=== PATIENT | male | born 1990 | race American Indian/Alaskan Native ===

== ENCOUNTER 2016-12-14 12:44 | Emergency (ER) | payer MEDICARE ==
[2016-12-14 12:55] VITALS: BP 116/73
[2016-12-14] MEDS ORDERED: TORADOL IM ONE (15:27)
== END 2016-12-14 16:07 | disposition home or self-care (01) ==
LOC: ED 12:44
DX: M54.5 Low back pain (principal); G89.29 Other chronic pain
CPT/HCPCS: 96372; 99282; J1885

== ENCOUNTER 2017-05-28 18:58 | Emergency (ER) | payer MEDICARE ==
[2017-05-28 20:04] LABS: Urine Drugs of Abuse Note Disclamer
--- NOTE | 2017-05-28 20:08 | Emergency Department Report ---
ED Syncope HPI - General Chief Complaint: Syncope Stated Complaint: SYNCOPE EPISODE Time Seen by Provider: 05/28/17 19:59 Source: patient, family - History of Present Illness Initial Comments: Patient is 26-year-old male presents by EMS after one episode of seizure-like activity [place] all [place] a sudden he lost his consciousness and he started jerking. Friend stated that discontinued for few seconds in patient with back to normal patient did not have any bladder incontinence patient now is back to normal. This is a first episode. No family history of seizure. Timing/Prior Episodes: no prior history, single episode today Precipitating Factors: Positive: none Context: standing Loss of Consciousness: brief (seconds) Current Symptoms: back to normal. denies: blurred vision, chest pain, diaphoresis, dizziness, headache, injury, lightheadedness, loss of bladder control, loss of bowel control, motionless, nausea, pale, shallow/rapid breathing, weak/absent pulse, weakness - Related Data Allergies/Adverse Reactions: Allergies No Known Allergies Allergy (Verified 05/28/17 19:45) Home Medications: Ambulatory Orders No Known Home Medications [No Reported Home Medications] 05/28/17 ED Review of Systems ROS: Stated complaint: SYNCOPE EPISODE Other details as noted in HPI Comment: All other systems reviewed and negative Constitutional: denies: chills, fever Respiratory: denies: cough, orthopnea, shortness of breath, SOB with exertion Cardiovascular: denies: chest pain, palpitations, dyspnea on exertion, edema, syncope, paroxysmal nocturnal dyspnea Gastrointestinal: denies: abdominal pain, nausea, vomiting, diarrhea, constipation, hematemesis Musculoskeletal: denies: back pain, joint swelling Skin: denies: rash, change in color, change in hair/nails Neurological: denies: headache, weakness, numbness, paresthesias ED Past Medical Hx - Past Medical History Previous Medical History?: Yes Hx Hypertension: Yes Additional medical history: back pain - Surgical History Past Surgical History?: No - Social History Smoking Status: Never Smoker Substance Use Type: None - Medications Home Medications: Home Medications Medication Instructions Recorded Confirmed Last Taken Type No Known Home Medications [No 05/28/17 05/28/17 Unknown History Reported Home Medications] ED Physical Exam - General Limitations: No Limitations General appearance: alert, in no apparent distress - Head Head exam: Present: atraumatic, normocephalic - Eye Eye exam: Present: normal appearance, PERRL, EOMI Pupils: Present: normal accommodation - ENT ENT exam: Present: normal exam, normal orophraynx, mucous membranes moist, TM's normal bilaterally - Neck Neck exam: Present: normal inspection, full ROM. Absent: meningismus, lymphadenopathy, thyromegaly - Respiratory Respiratory exam: Present: normal lung sounds bilaterally. Absent: respiratory distress, wheezes, rales, rhonchi, stridor, decreased breath sounds, prolonged expiratory - Cardiovascular Cardiovascular Exam: Present: regular rate, normal rhythm, normal heart sounds - GI/Abdominal GI/Abdominal exam: Present: soft, normal bowel sounds. Absent: distended, tenderness, guarding, rebound, rigid, mass, bruit, pulsatile mass, hernia - Extremities Exam Extremities exam: Present: normal inspection, full ROM, normal capillary refill - Back Exam Back exam: Present: normal inspection, full ROM. Absent: tenderness, CVA tenderness (R), CVA tenderness (L), paraspinal tenderness, vertebral tenderness - Neurological Exam Neurological exam: Present: alert, oriented X3, CN II-XII intact, normal gait - Skin Skin exam: Present: warm, intact, normal color ED Course Vital Signs 05/28/17 19:45 Temperature 98.1 F Pulse Rate 67 Respiratory 18 Rate Blood Pressure 147/91 O2 Sat by Pulse 99 Oximetry - Reevaluation(s) Reevaluation #1: 05/28/17 22:15 Patient remained asymptomatic in the ER nor any evidence of seizure activity. ED Medical Decision Making - Lab Data Result diagrams: 05/28/17 20:42 05/28/17 20:42 - EKG Data -: EKG Interpreted by Me EKG shows normal: sinus rhythm - EKG Data Interpretation: no acute changes - Radiology Data Radiology results: report reviewed CT brain unremarkable - Medical Decision Making Patient stated that he is feeling better. And for him this is a possibility of seizure versus just syncope he need to follow up with an neurologist in the next 2-3 days. Critical care attestation.: If time is entered above; I have spent that time in minutes in the direct care of this critically ill patient, excluding procedure time. ED Disposition Clinical Impression: Syncope and collapse Disposition: DC- TO HOME OR SELFCARE Is pt being admited?: No Condition: Stable Instructions: Syncope (ED) Referrals: PRIMARY CARE,MD [Primary Care Provider] - 3-5 Days
[2017-05-28 20:13] LABS: Bilirubin,Urine NEG (Negative); Blood,Urine NEG (Negative); Ketones,Urine NEG (Negative); Leukocyte Esterase,Urine NEG (Negative); Nitrite,Urine NEG (Negative); Protein,Urine <15 mg/dL mg/dL (Negative); RBC,Urine < 1.0 /HPF (0.0-6.0); Urobilinogen,Urine < 2.0 mg/dL (<2.0)
[2017-05-28 21:00] LABS: Basophils % (Auto) 0.7 % (0.0-1.8); Eosinophils % (Auto) 4.5 % (0.0-4.3); Hematocrit 42.2 % (35.5-45.6); Hemoglobin 14.3 gm/dl (11.8-15.2); Mean Corpuscular HGB Conc 34 % (32-34); Mean Corpuscular Hemoglobin 29 pg (28-32); Mean Corpuscular Volume 87 fl (84-94); Platelet Count 160 K/mm3 (140-440); Red Blood Count 4.88 M/mm3 (3.65-5.03); Red Cell Distribution Width 13.2 % (13.2-15.2); White Blood Count 5.6 K/mm3 (4.5-11.0)
[2017-05-28 21:22] LABS: Alanine Aminotransferase 10 units/L (7-56); Albumin 4.7 g/dL (3.9-5); Albumin/Globulin Ratio 1.9 %; Alkaline Phosphatase 45 units/L (35-129); Anion Gap 15 mmol/L; BUN/Creatinine Ratio 14; Blood Urea Nitrogen 11 mg/dL (9-20); Calcium 9.3 mg/dL (8.4-10.2); Carbon Dioxide 28 mmol/L (22-30); Chloride 102.7 mmol/L (98-107); Glucose 98 mg/dL (75-100); Potassium 4.7 mmol/L (3.6-5.0); Sodium 141 mmol/L (137-145); Total Protein 7.2 g/dL (6.3-8.2)
--- NOTE | 2017-05-28 21:42 | Cat Scan Report ---
FINAL REPORT PROCEDURE: CT HEAD/BRAIN WO CON TECHNIQUE: Computerized tomography of the head was performed without contrast material. HISTORY: AMS COMPARISON: No prior studies are available for comparison. FINDINGS: Skull and scalp: Normal. Paranasal sinuses: Normal. Ventricles and subarachnoid spaces: Normal. Cerebrum: No evidence of hemorrhage, acute infarction or mass . Cerebellum and brainstem: No evidence of hemorrhage, acute infarction or mass. Vasculature: Normal. Comments: None. IMPRESSION: Normal Examination
[2017-05-28 22:37] VITALS: BP 126/76
== END 2017-05-28 22:40 | disposition home or self-care (01) ==
LOC: ED 18:58
DX: R55 Syncope and collapse (principal); R56.9 Unspecified convulsions; I10 Essential (primary) hypertension
CPT/HCPCS: 36415; 70450; 80053; 80307; 81001; 85025; 93005; 93010; 99284; G0480; 80320

== ENCOUNTER 2018-01-31 13:54 | Emergency (ER) | payer MEDICARE ==
[2018-01-31 14:25] VITALS: BP 141/63
--- NOTE | 2018-01-31 15:25 | XRay Report ---
RIGHT ANKLE, 3 views: History: right ankle pain. Bone mineralization is normal. No acute osseous abnormality or joint pathology is identified. The soft tissues are unremarkable. IMPRESSION: Normal study.
[2018-01-31] MEDS ORDERED: MOTRIN PO ONE (16:43)
--- NOTE | 2018-01-31 16:46 | Emergency Department Report ---
ED Lower Extremity HPI - General Chief Complaint: Extremity Injury, Lower Stated Complaint: ANKLE HURTS Time Seen by Provider: 01/31/18 16:40 Source: patient Mode of arrival: Ambulatory Limitations: No Limitations - History of Present Illness Initial Comments: 27-year-old male past medical history attention presents with complaint of one week of right ankle pain. Patient denies any direct trauma to right ankle. Is ambulatory without assistance. States that he has been swimming lately may have strained his ankle while swimming. Denies any fevers chills or any other injuries. No calf swelling or calf tenderness. Patient is ambulatory without assistance but states that when he steps on his right ankle he feels pain medially. Complaint: ankle injury Onset/Timin -: week(s) Injury: Ankle: Right Type of Injury: hyperextension Place: street/outdoors Severity: moderate Severity scale (0 -10): 5 Worsens With: movement, palpation - Related Data Previous Rx's Medication Instructions Recorded Last Taken Type Ibuprofen [Motrin] 800 mg PO Q8HR PRN #20 tablet 01/31/18 Unknown Rx Allergies Allergy/AdvReac Type Severity Reaction Status Date / Time No Known Allergies Allergy Verified 05/28/17 19:45 ED Review of Systems ROS: Stated complaint: ANKLE HURTS Other details as noted in HPI Constitutional: denies: chills, fever Eyes: denies: eye pain, eye discharge, vision change ENT: denies: ear pain, throat pain Respiratory: denies: cough, shortness of breath, wheezing Cardiovascular: denies: chest pain, palpitations Endocrine: no symptoms reported Gastrointestinal: denies: abdominal pain, nausea, diarrhea Genitourinary: denies: urgency, dysuria Musculoskeletal: as per HPI, arthralgia (1 week rigth ankle discomfort). denies : back pain, joint swelling Skin: denies: rash, lesions Neurological: denies: headache, weakness, paresthesias Psychiatric: denies: anxiety, depression Hematological/Lymphatic: denies: easy bleeding, easy bruising ED Past Medical Hx - Past Medical History Hx Hypertension: Yes Additional medical history: back pain - Social History Smoking Status: Never Smoker Substance Use Type: None - Medications Home Medications: Home Medications Medication Instructions Recorded Confirmed Last Taken Type Ibuprofen [Motrin] 800 mg PO Q8HR PRN #20 tablet 01/31/18 Unknown Rx ED Physical Exam - General Limitations: No Limitations General appearance: alert, in no apparent distress - Head Head exam: Present: atraumatic, normocephalic - Eye Eye exam: Present: normal appearance - ENT ENT exam: Present: mucous membranes moist - Neck Neck exam: Present: normal inspection - Respiratory Respiratory exam: Present: normal lung sounds bilaterally. Absent: respiratory distress - Cardiovascular Cardiovascular Exam: Present: regular rate, normal rhythm. Absent: systolic murmur, diastolic murmur, rubs, gallop - GI/Abdominal GI/Abdominal exam: Present: soft, normal bowel sounds - Rectal Rectal exam: Present: deferred - Extremities Exam Extremities exam: Present: normal inspection - Expanded Lower Extremity Exam Right Upper Leg exam: Present: normal inspection, full ROM Knee exam: Present: normal inspection, full ROM Lower Leg exam: Present: normal inspection, full ROM Ankle exam: Present: full ROM (ankle plantar flexion dorsiflexion clinically intact. Distal pulses including dorsalis pedis and posterior tibial pulses strong to palpation. No signs of cellulitis or infection overlying ankle joint or foot.) Foot/Toe exam: Present: normal inspection, full ROM (inversion eversion dorsi and plantarflexion intact) Neuro vascular tendon exam: Present: no vascular compromise Gait: Positive: antalgic 1 - Slight pain on palpation - Back Exam Back exam: Present: normal inspection - Neurological Exam Neurological exam: Present: alert, oriented X3, CN II-XII intact, normal gait - Expanded Neurological Exam Expanded Patient oriented to: Present: person, place, time Sensory exam: Upper Extremity Light Touch: Normal, Lower Extremity Light Touch: Normal Motor strength exam: RUE: 5, LUE: 5, RLE: 5, LLE: 5 Best Eye Response (Jossy): (4) open spontaneously Best Motor Response (Jossy): (6) obeys commands Best Verbal Response (Jossy): (5) oriented [place] Total: 15 - Psychiatric Psychiatric exam: Present: normal affect, normal mood - Skin Skin exam: Present: warm, dry, intact, normal color. Absent: rash ED Course Vital Signs 07/05/18 14:22 Temperature 98.1 F Pulse Rate 61 Respiratory 16 Rate Blood Pressure 141/63 O2 Sat by Pulse 97 Oximetry ED Lower Extremity MDM - Medical Decision Making A/P: Right ankle sprain 1-pt can take several steps without significant difficulty 2-Solitario wrap, RICE therapy, Motrin 800. 3-no clinical signs of infection or DVT on exam. Distal pulses and range of motion clinically intact. 4-follow-up with orthopedics and primary care Critical care attestation.: If time is entered above; I have spent that time in minutes in the direct care of this critically ill patient, excluding procedure time. ED Disposition Clinical Impression: Right ankle pain Qualifiers: Chronicity: acute Qualified Code(s): M25.571 - Pain in right ankle and joints of right foot Disposition: - TO HOME OR SELFCARE Is pt being admited?: No Does the pt Need Aspirin: No Condition: Stable Instructions: RICE Therapy (ED), Arthralgia (ED), Ankle Sprain (ED) Prescriptions: Ibuprofen [Motrin] 800 mg PO Q8HR PRN #20 tablet PRN Reason: Pain , Severe (7-10) Referrals: BRANDON ORTIZ MD [Staff Physician] - 3-5 Days [facility] [Provider Group] - 3-5 Days Forms: Work/School Release Form(ED) Time of Disposition: 16:46
== END 2018-01-31 17:01 | disposition home or self-care (01) ==
LOC: ED 13:54
DX: M25.571 Pain in right ankle and joints of right foot (principal); I10 Essential (primary) hypertension; X58.XXXA Exposure to other specified factors, initial encounter; Y93.11 Activity, swimming; Y92.89 Other specified places as the place of occurrence of the external cause; Y99.8 Other external cause status
CPT/HCPCS: 99283

== ENCOUNTER 2018-05-16 22:46 | Emergency (ER) | payer MEDICARE ==
[2018-05-17 00:36] LABS: Basophils % (Auto) 0.5 % (0.0-1.8); Eosinophils # (Auto) 0.2 K/mm3 (0.0-0.4); Eosinophils % (Auto) 3.8 % (0.0-4.3); Hematocrit 41.9 % (35.5-45.6); Hemoglobin 13.9 gm/dl (11.8-15.2); Lymphocytes # (Auto) 2.7 K/mm3 (1.2-5.4); Lymphocytes % (Auto) 41.2 % (13.4-35.0); Mean Corpuscular HGB Conc 33 % (32-34); Mean Corpuscular Hemoglobin 29 pg (28-32); Mean Corpuscular Volume 88 fl (84-94); Monocytes # (Auto) 0.5 K/mm3 (0.0-0.8); Monocytes % (Auto) 8.3 % (0.0-7.3); Platelet Count 162 K/mm3 (140-440); Red Blood Count 4.75 M/mm3 (3.65-5.03); Red Cell Distribution Width 13.1 % (13.2-15.2)
[2018-05-17 01:14] LABS: Bilirubin,Urine NEG (Negative); Blood,Urine NEG (Negative); Color,Urine Yellow (Yellow); Mucus,Urine FEW /HPF; Protein,Urine <15 mg/dL mg/dL (Negative)
[2018-05-17 01:15] LABS: BUN/Creatinine Ratio 21; Blood Urea Nitrogen 15 mg/dL (9-20); Calcium 9.5 mg/dL (8.4-10.2); Hemolysis Index 12
[2018-05-17] MEDS ORDERED: SUBLIMAZE IV ONE (01:24)
[2018-05-17] MEDS ORDERED: ZOFRAN IV ONE (01:24)
[2018-05-17] MEDS ORDERED: TORADOL IV ONE (01:24)
[2018-05-17] MEDS ORDERED: NACL 0.9% 1000 ML 1,000 ML IV ONE (01:24)
--- NOTE | 2018-05-17 01:29 | Emergency Department Report ---
HPI - General Chief Complaint: Abdominal Pain Time Seen by Provider: 05/17/18 01:[address] - [facility] HPI: Room 3 The patient is a 27-year-old male presenting with chief complaint of right flank pain. The patient states for the past 5 days he right flank pain. The patient states the pain was initially intermittent but has now today become constant. The patient admits to nausea and vomiting. Patient denies dysuria, hematuria or fever. Patient denies previous episodes of the same. The patient gives his pain a score of 10/10 Location: Right flank Duration: 5 days Quality: Pain Severity: 10/10 Modifying factors: [see above] Context: [see above] Mode of transportation: [not driving] ED Past Medical Hx - Past Medical History Hx Hypertension: Yes Additional medical history: back pain - Surgical History Past Surgical History?: No - Family History Family history: no significant - Social History Smoking Status: Never Smoker Substance Use Type: None (denies illicit drug use) - Medications Home Medications: Home Medications Medication Instructions Recorded Confirmed Last Taken Type Ibuprofen [Motrin] 800 mg PO Q8HR PRN #20 tablet 01/31/18 Unknown Rx HYDROcodone/APAP 5-325 [[place] 1 - 2 each PO Q6HR PRN #14 tablet 05/17/18 Unknown Rx 5/325] Ibuprofen [Motrin 800 MG tab] 800 mg PO Q8HR PRN #20 tablet 05/17/18 Unknown Rx Promethazine [Phenergan TAB] 25 mg PO Q6HR PRN #20 tab 05/17/18 Unknown Rx levoFLOXacin [Levaquin TAB] 500 mg PO QDAY #7 tablet 05/17/18 Unknown Rx ED Review of Systems ROS: Stated complaint: RT FLANK PAIN Other details as noted in HPI Constitutional: denies: fever Eyes: denies: eye pain ENT: denies: throat pain Respiratory: no symptoms reported Cardiovascular: denies: chest pain Endocrine: no symptoms reported Gastrointestinal: abdominal pain (right flank), nausea, vomiting Genitourinary: denies: dysuria, hematuria Musculoskeletal: back pain Neurological: denies: headache Physical Exam - Physical Exam Vital Signs: Vital Signs 05/16/18 05/17/18 05/17/18 23:48 00:07 00:53 Temperature 98.7 F 97.7 F Pulse Rate 63 56 L Respiratory 16 18 Rate Blood Pressure 137/80 Blood Pressure 131/93 [Left] O2 Sat by Pulse 99 100 98 Oximetry Physical Exam: GENERAL: The patient is well-developed well-nourished male sitting on stretcher not appearing to be in acute distress. [] HEENT: Normocephalic. Atraumatic. Extraocular motions are intact. Patient has moist mucous membranes. NECK: Supple. Trachea midline CHEST/LUNGS: Clear to auscultation. There is no respiratory distress noted. HEART/CARDIOVASCULAR: Regular. There is no tachycardia. There is no gallop rub or murmur. ABDOMEN: Abdomen is soft, nontender. Patient has normal bowel sounds. There is no abdominal distention. SKIN: There is no rash. There is no edema. There is no diaphoresis. NEURO: The patient is awake, alert, and oriented. The patient is cooperative. The patient has normal speech MUSCULOSKELETAL: There is no CVA tenderness bilaterally. There is no evidence of acute injury. ED Course Vital Signs 05/16/18 05/17/18 05/17/18 23:48 00:07 00:53 Temperature 98.7 F 97.7 F Pulse Rate 63 56 L Respiratory 16 18 Rate Blood Pressure 137/80 Blood Pressure 131/93 [Left] O2 Sat by Pulse 99 100 98 Oximetry ED Medical Decision Making - Lab Data Result diagrams: 05/17/18 00:19 05/17/18 00:19 Laboratory Tests 05/17/18 05/17/18 05/17/18 00:19 00:19 Unknown WBC 6.5 RBC 4.75 Hgb 13.9 Hct 41.9 MCV 88 MCH 29 MCHC 33 RDW 13.1 L Plt Count 162 Lymph % (Auto) 41.2 H [place] % (Auto) 8.3 H Eos % (Auto) 3.8 Baso % (Auto) 0.5 Lymph # 2.7 [place] # 0.5 Eos # 0.2 Baso # 0.0 Seg Neutrophils % 46.2 Seg Neutrophils # 3.0 Sodium 139 Potassium 4.4 Chloride 104.8 Carbon Dioxide 25 Anion Gap 14 BUN 15 Creatinine 0.7 L Estimated GFR > 60 BUN/Creatinine Ratio 21 Glucose 91 Calcium 9.5 Urine Color Yellow Urine Turbidity Clear Urine pH 6.0 Ur Specific [place] 1.025 Urine Protein <15 mg/dl Urine Glucose (UA) Neg Urine Ketones Neg Urine Blood Neg Urine Nitrite Neg Urine Bilirubin Neg Urine Urobilinogen 2.0 Ur Leukocyte Esterase Tr Urine WBC (Auto) 12.0 H Urine RBC (Auto) 2.0 U Epithel Cells (Auto) 1.0 Urine Mucus Few - Radiology Data Radiology results: report reviewed (CT abdomen and pelvis), image reviewed (CT abdomen and pelvis) [facility] [address] [place] [address] Cat Scan Report Signed Patient: SHAHRIAR FOSTER MR#: [id number] : 1990 Acct:[id number] Age/Sex: 27 / M ADM Date: 05/16/18 Loc: ED Attending Dr: Ordering Physician: JOHANNE BOATENG MD Date of Service: 05/17/18 Procedure(s): CT abdomen pelvis wo con Accession Number(s): [id number] cc: JOHANNE BOATENG MD FINAL REPORT PROCEDURE: CT ABDOMEN PELVIS WO CON TECHNIQUE: Computerized axial tomography of the abdomen and pelvis was performed without intravenous contrast. This study is performed without intravascular contrast material and its sensitivity for abdominal and pelvic pathology, including neoplasms, inflammation, abscess, free fluid, thrombosis, arterial dissection and infarction, is reduced compared with a contrast enhanced study. HISTORY: right flank pain nausea vomiting COMPARISON: No prior studies are available for comparison. FINDINGS: Visualized lower thorax: No significant abnormality. Liver: Normal size and attenuation. Spleen: Normal size and attenuation. Gallbladder and biliary system: Normal. Pancreas: Normal. Adrenals: Normal. Kidneys: There are no kidney stones or ureteral stones. There is no hydronephrosis.. GI tract: There is no bowel obstruction, colitis or enteritis. The appendix is normal.. Lymph nodes and mesentery: Normal. Vasculature: Normal. Bladder: Normal. Reproductive organs: Normal. Peritoneum: There is no ascites or free air, abscess or adenopathy.. Musculoskeletal structures: No significant abnormality. Other: None. IMPRESSION: There are no kidney stones or ureteral stones. There is no hydronephrosis. There is no bowel obstruction, colitis or enteritis. The appendix is normal. There is no ascites or free air, abscess or adenopathy. . Transcribed By: CO Dictated By: RUBÉN BARRERA MD Electronically Authenticated By: RUBÉN BARRERA MD Signed Date/Time: 05/17/18335 DD/ 5 TD/TT: 05/17/18 033 - Differential Diagnosis renal colic, pyelonephritis, appendicitis Critical care attestation.: If time is entered above; I have spent that time in minutes in the direct care of this critically ill patient, excluding procedure time. ED Disposition Clinical Impression: Acute right flank pain, Pyelonephritis Disposition: TO HOME OR SELFCARE Is pt being admited?: No Does the pt Need Aspirin: No Condition: Stable Instructions: Flank Pain (ED) Additional Instructions: Return to the emergency department immediately should you develop worsening symptoms, fever, inability to tolerate food or liquid or any other concerns. Prescriptions: HYDROcodone/APAP 5-325 [[place] 5/325] 1 - 2 each PO Q6HR PRN #14 tablet PRN Reason: Pain Ibuprofen [Motrin 800 MG tab] 800 mg PO Q8HR PRN #20 tablet PRN Reason: Pain, Moderate (4-6) levoFLOXacin [Levaquin TAB] 500 mg PO QDAY #7 tablet Promethazine [Phenergan TAB] 25 mg PO Q6HR PRN #20 tab PRN Reason: Nausea Referrals: PRIMARY CARE, [Primary Care Provider] - 3-5 Days FRED COLLINS MD [Staff Physician] - 3-5 Days (Dr. Collins is a urologist. Please follow-up with him for further evaluation) Time of Disposition: 04:11
--- NOTE | 2018-05-17 03:37 | Cat Scan Report ---
FINAL REPORT PROCEDURE: CT ABDOMEN PELVIS WO CON TECHNIQUE: Computerized axial tomography of the abdomen and pelvis was performed without intravenous contrast. This study is performed without intravascular contrast material and its sensitivity for abdominal and pelvic pathology, including neoplasms, inflammation, abscess, free fluid, thrombosis, arterial dissection and infarction, is reduced compared with a contrast enhanced study. HISTORY: right flank pain nausea vomiting COMPARISON: No prior studies are available for comparison. FINDINGS: Visualized lower thorax: No significant abnormality. Liver: Normal size and attenuation. Spleen: Normal size and attenuation. Gallbladder and biliary system: Normal. Pancreas: Normal. Adrenals: Normal. Kidneys: There are no kidney stones or ureteral stones. There is no hydronephrosis.. GI tract: There is no bowel obstruction, colitis or enteritis. The appendix is normal.. Lymph nodes and mesentery: Normal. Vasculature: Normal. Bladder: Normal. Reproductive organs: Normal. Peritoneum: There is no ascites or free air, abscess or adenopathy.. Musculoskeletal structures: No significant abnormality. Other: None. IMPRESSION: There are no kidney stones or ureteral stones. There is no hydronephrosis. There is no bowel obstruction, colitis or enteritis. The appendix is normal. There is no ascites or free air, abscess or adenopathy. .
[2018-05-17] MEDS ORDERED: LEVAQUIN PO ONE (04:08)
[2018-05-17 08:52] VITALS: BP 103/62
== END 2018-05-17 04:43 | disposition home or self-care (01) ==
LOC: ED 22:46
DX: N12 Tubulo-interstitial nephritis, not specified as acute or chronic (principal); I10 Essential (primary) hypertension
CPT/HCPCS: 36415; 74176; 80048; 81001; 85025; 96361; 96374; 96375; 99284; J1885; J2405; J3010; J7030

== ENCOUNTER 2018-08-29 20:56 | Emergency (ER) | payer MEDICARE ==
--- NOTE | 2018-08-29 23:13 | XRay Report ---
FINAL REPORT EXAM: XR CHEST ROUTINE 2V HISTORY: rib pain TECHNIQUE: PA and lateral views of the chest Comparison: None FINDINGS: There is no evidence of infiltrate, pneumothorax or pleural fluid collection. The cardiomediastinal silhouette is normal in appearance. The bony structures are unremarkable. IMPRESSION: 1. Normal study.
--- NOTE | 2018-08-29 23:44 | Emergency Department Report ---
ED ENT HPI - General Chief complaint: Sore Throat Stated complaint: LEFT SIDE PAIN,DIFF BREATHING,THROAT PAIN Time Seen by Provider: 08/29/18 23:04 Source: patient Mode of arrival: Ambulatory Limitations: No Limitations - History of Present Illness Initial comments: 27-year-old [place] male presents emergency department complaining of a 5 day history of cough with right rib discomfort and sore throat which is been non- progressing. No nausea, vomiting, diarrhea, fever, chills, sweats. Mild nasal congestion has been noted. Pain is worse with eating and swallowing coughing spells. MD complaint: sore throat Location: throat Quality: aching, dull, constant Consistency: constant Improves with: none Worsens with: none Associated Symptoms: cough, sore throat, rhinorrhea. denies: tinnitus, discharge from ear - Related Data Previous Rx's Medication Instructions Recorded Last Taken Type Ibuprofen [Motrin] 800 mg PO Q8HR PRN #20 tablet 01/31/18 Unknown Rx Promethazine [Phenergan TAB] 25 mg PO Q6HR PRN #20 tab 05/17/18 Unknown Rx levoFLOXacin [Levaquin TAB] 500 mg PO QDAY #7 tablet 05/17/18 Unknown Rx HYDROcodone/APAP 5-325 [[place] 1 - 2 each PO Q6HR PRN #14 tablet 06/16/18 Unknown Rx 5-325 mg TAB] Ibuprofen [Motrin 800 MG tab] 800 mg PO Q8HR PRN #20 tablet 06/16/18 Unknown Rx Ibuprofen [Motrin] 600 mg PO Q8H PRN #20 tablet 07/04/18 Unknown Rx Famotidine [Pepcid] 40 mg PO DAILY #14 tablet 07/13/18 Unknown Rx Hyoscyamine Subl [Levsin Sl 0.125 0.125 mg SL Q6HR PRN #20 tab 07/13/18 Unknown Rx TAB] Amoxicillin 500 mg PO TID #21 capsule 08/29/18 Unknown Rx Benzonatate [Tessalon Perles] 100 mg PO Q8HR #20 capsule 08/29/18 Unknown Rx Chlorhexidine Mouthwash [Peridex] 15 ml MM BID #473 bottle 08/29/18 Unknown Rx Lidocaine Viscous 2% 5 ml MM Q3H PRN #120 udc 08/29/18 Unknown Rx Allergies Allergy/AdvReac Type Severity Reaction Status Date / Time No Known Allergies Allergy Verified 07/13/18 09:18 ED Dental HPI - General Chief complaint: Sore Throat Stated complaint: LEFT SIDE PAIN,DIFF BREATHING,THROAT PAIN Time Seen by Provider: 08/29/18 23:04 Source: patient Mode of arrival: Ambulatory Limitations: No Limitations - Related Data Previous Rx's Medication Instructions Recorded Last Taken Type Ibuprofen [Motrin] 800 mg PO Q8HR PRN #20 tablet 01/31/18 Unknown Rx Promethazine [Phenergan TAB] 25 mg PO Q6HR PRN #20 tab 05/17/18 Unknown Rx levoFLOXacin [Levaquin TAB] 500 mg PO QDAY #7 tablet 05/17/18 Unknown Rx HYDROcodone/APAP 5-325 [[place] 1 - 2 each PO Q6HR PRN #14 tablet 06/16/18 Unknown Rx 5-325 mg TAB] Ibuprofen [Motrin 800 MG tab] 800 mg PO Q8HR PRN #20 tablet 06/16/18 Unknown Rx Ibuprofen [Motrin] 600 mg PO Q8H PRN #20 tablet 07/04/18 Unknown Rx Famotidine [Pepcid] 40 mg PO DAILY #14 tablet 07/13/18 Unknown Rx Hyoscyamine Subl [Levsin Sl 0.125 0.125 mg SL Q6HR PRN #20 tab 07/13/18 Unknown Rx TAB] Amoxicillin 500 mg PO TID #21 capsule 08/29/18 Unknown Rx Benzonatate [Tessalon Perles] 100 mg PO Q8HR #20 capsule 08/29/18 Unknown Rx Chlorhexidine Mouthwash [Peridex] 15 ml MM BID #473 bottle 08/29/18 Unknown Rx Lidocaine Viscous 2% 5 ml MM Q3H PRN #120 udc 08/29/18 Unknown Rx Allergies Allergy/AdvReac Type Severity Reaction Status Date / Time No Known Allergies Allergy Verified 07/13/18 09:18 ED Review of Systems ROS: Stated complaint: LEFT SIDE PAIN,DIFF BREATHING,THROAT PAIN Other details as noted in HPI Constitutional: denies: chills, fever Eyes: denies: eye pain, eye discharge, vision change ENT: throat pain. denies: ear pain Respiratory: cough. denies: shortness of breath, wheezing Cardiovascular: denies: chest pain, palpitations Endocrine: no symptoms reported Gastrointestinal: denies: abdominal pain, nausea, diarrhea Genitourinary: denies: urgency, dysuria Musculoskeletal: denies: back pain, joint swelling, arthralgia Skin: denies: rash, lesions Neurological: denies: headache, weakness, paresthesias Psychiatric: denies: anxiety, depression Hematological/Lymphatic: denies: easy bleeding, easy bruising ED Past Medical Hx - Past Medical History Previous Medical History?: No Hx Hypertension: Yes Additional medical history: back pain - Surgical History Past Surgical History?: No - Social History Smoking Status: Never Smoker Substance Use Type: None - Medications Home Medications: Home Medications Medication Instructions Recorded Confirmed Last Taken Type Ibuprofen [Motrin] 800 mg PO Q8HR PRN #20 tablet 01/31/18 Unknown Rx Promethazine [Phenergan TAB] 25 mg PO Q6HR PRN #20 tab 05/17/18 Unknown Rx levoFLOXacin [Levaquin TAB] 500 mg PO QDAY #7 tablet 05/17/18 Unknown Rx HYDROcodone/APAP 5-325 [[place] 1 - 2 each PO Q6HR PRN #14 tablet 06/16/18 Unknown Rx 5-325 mg TAB] Ibuprofen [Motrin 800 MG tab] 800 mg PO Q8HR PRN #20 tablet 06/16/18 Unknown Rx Ibuprofen [Motrin] 600 mg PO Q8H PRN #20 tablet 07/04/18 Unknown Rx Famotidine [Pepcid] 40 mg PO DAILY #14 tablet 07/13/18 Unknown Rx Hyoscyamine Subl [Levsin Sl 0.125 0.125 mg SL Q6HR PRN #20 tab 07/13/18 Unknown Rx TAB] Amoxicillin 500 mg PO TID #21 capsule 08/29/18 Unknown Rx Benzonatate [Tessalon Perles] 100 mg PO Q8HR #20 capsule 08/29/18 Unknown Rx Chlorhexidine Mouthwash [Peridex] 15 ml MM BID #473 bottle 08/29/18 Unknown Rx Lidocaine Viscous 2% 5 ml MM Q3H PRN #120 udc 08/29/18 Unknown Rx ED Physical Exam - General Limitations: No Limitations General appearance: alert, in no apparent distress - Head Head exam: Present: atraumatic, normocephalic - Eye Eye exam: Present: normal appearance, PERRL, EOMI Pupils: Present: normal accommodation - ENT ENT exam: Present: normal exam, mucous membranes moist, other (pharynx with erythematous, no exudate. Airway is patent. Tongue and uvula midline.) - Neck Neck exam: Present: normal inspection, lymphadenopathy - Respiratory Respiratory exam: Present: normal lung sounds bilaterally, other (respiratory rate was 16). Absent: respiratory distress, wheezes, rales, rhonchi, stridor - Cardiovascular Cardiovascular Exam: Present: regular rate, normal rhythm. Absent: systolic murmur, diastolic murmur, rubs, gallop - GI/Abdominal GI/Abdominal exam: Present: soft, normal bowel sounds - Rectal Rectal exam: Present: deferred - Extremities Exam Extremities exam: Present: normal inspection - Back Exam Back exam: Present: normal inspection - Neurological Exam Neurological exam: Present: alert, oriented X3 - Psychiatric Psychiatric exam: Present: normal affect, normal mood - Skin Skin exam: Present: warm, dry, intact, normal color. Absent: rash ED Course Vital Signs 08/29/18 21:24 Temperature 98.8 F Pulse Rate 65 Blood Pressure 127/80 O2 Sat by Pulse 99 Oximetry Critical care attestation.: If time is entered above; I have spent that time in minutes in the direct care of this critically ill patient, excluding procedure time. ED Disposition Clinical Impression: Sore throat, Cough Disposition: DC-01 TO HOME OR SELFCARE Is pt being admited?: No Does the pt Need Aspirin: No Condition: Stable Instructions: Pharyngitis (ED), Cold Symptoms (ED), Acute Cough (ED) Prescriptions: Amoxicillin 500 mg PO TID #21 capsule Benzonatate [Tessalon Perles] 100 mg PO Q8HR #20 capsule Chlorhexidine Mouthwash [Peridex] 15 ml MM BID #473 bottle Lidocaine Viscous 2% 5 ml MM Q3H PRN #120 udc PRN Reason: Pain, Moderate (4-6) Referrals: [facility] [Provider Group] - 3-5 Days
[2018-08-30 00:20] VITALS: BP 128/76
== END 2018-08-30 00:19 | disposition home or self-care (01) ==
LOC: ED 20:56
DX: J02.9 Acute pharyngitis, unspecified (principal); I10 Essential (primary) hypertension
CPT/HCPCS: 71046; 99283

== ENCOUNTER 2018-09-15 18:07 | Emergency (ER) | payer MEDICARE ==
--- NOTE | 2018-09-15 18:16 | Emergency Department Report ---
Blank Doc - Documentation Documentation: This is a 27-year-old male that presents with a dog bite to left knee. Patient denies knowing if UTD with vaccines. Denies any other injuries or trauma. This initial assessment diagnostic orders/clinical plan/treatment(s) is/are subject to change based on patient's health status, clinical progression and re- assessment by fellow clinical providers in the ED. Further treatment and workup at subsequent clinical providers discretion. Patient/guardians urged not to elope from ED s their condition may be serious if not clinically assessed and managed. Initial orders include: 1-patient sent to [facility] for further evaluation and treatment. 2- animal control to be notified.
== END 2018-09-15 20:55 | disposition left against medical advice (07) ==
LOC: ED 18:07
CPT/HCPCS: 99281

== ENCOUNTER 2018-09-26 00:46 | Emergency (ER) | payer MEDICARE ==
[2018-09-26 02:12] VITALS: BP 120/77
[2018-09-26] MEDS ORDERED: IBUPROFEN PO ONE ×2 (02:13→02:16)
[2018-09-26 04:45] LABS: Bilirubin,Urine NEG (Negative); Blood,Urine NEG (Negative); Color,Urine Yellow (Yellow); Mucus,Urine FEW /HPF; Protein,Urine <15 mg/dL mg/dL (Negative); RBC,Urine < 1.0 /HPF (0.0-6.0); Urobilinogen,Urine < 2.0 mg/dL (<2.0)
[2018-09-26] MEDS ORDERED: TORADOL IM ONE (05:20)
--- NOTE | 2018-09-26 05:25 | Emergency Department Report ---
ED Back Pain/Injury HPI - General Chief Complaint: Back Pain/Injury Stated Complaint: LOWER BACK PAIN Time Seen by Provider: 09/26/18 05:20 Source: patient Limitations: No Limitations - History of Present Illness Initial Comments: Patient is 27-year-old male who presents for left low back pain patient has history of chronic low back pain with sciatica states he strained bend and twist last week and is out of pain medication usually treated with NSAIDs and muscle relaxants there is no numbness no tingling or paralysis no weakness loss or decrease in bowel or bladder function patient remains ambulatory with steady gait pain is rated as 6/10 burning aching Complaint: back pain Onset/Timin -: week(s) Similar Symptoms Previously: Yes Place: home Radiation: left leg Severity: moderate Severity scale (0 -10): 5 Quality: burning, aching Consistency: constant Improves With: none Worsens With: sitting upright, walking Context: turning/twisting, bending Associated Symptoms: denies: numbness, difficulty urinating, incontinence, fever/chills, constipation, headaches, syncope - Related Data Previous Rx's Medication Instructions Recorded Last Taken Type Ibuprofen [Motrin] 800 mg PO Q8HR PRN #20 tablet 01/31/18 Unknown Rx Promethazine [Phenergan TAB] 25 mg PO Q6HR PRN #20 tab 05/17/18 Unknown Rx levoFLOXacin [Levaquin TAB] 500 mg PO QDAY #7 tablet 05/17/18 Unknown Rx HYDROcodone/APAP 5-325 [[place] 1 - 2 each PO Q6HR PRN #14 tablet 06/16/18 Unknown Rx 5-325 mg TAB] Ibuprofen [Motrin 800 MG tab] 800 mg PO Q8HR PRN #20 tablet 06/16/18 Unknown Rx Ibuprofen [Motrin] 600 mg PO Q8H PRN #20 tablet 07/04/18 Unknown Rx Famotidine [Pepcid] 40 mg PO DAILY #14 tablet 07/13/18 Unknown Rx Hyoscyamine Subl [Levsin Sl 0.125 0.125 mg SL Q6HR PRN #20 tab 07/13/18 Unknown Rx TAB] Amoxicillin 500 mg PO TID #21 capsule 08/29/18 Unknown Rx Benzonatate [Tessalon Perles] 100 mg PO Q8HR #20 capsule 08/29/18 Unknown Rx Chlorhexidine Mouthwash [Peridex] 15 ml MM BID #473 bottle 08/29/18 Unknown Rx Lidocaine Viscous 2% 5 ml MM Q3H PRN #120 udc 08/29/18 Unknown Rx Cyclobenzaprine [Flexeril] 10 mg PO TID PRN #30 tablet 09/26/18 Unknown Rx Menthol/Camphor [[place] 1 applicatio TP QID PRN #1 tube 09/26/18 Unknown Rx Ointment] Naproxen 500 mg PO BID PRN #30 tablet 09/26/18 Unknown Rx Allergies Allergy/AdvReac Type Severity Reaction Status Date / Time No Known Allergies Allergy Verified 07/13/18 09:18 ED Review of Systems ROS: Stated complaint: LOWER BACK PAIN Other details as noted in HPI Constitutional: denies: chills, fever Eyes: denies: eye pain, eye discharge, vision change ENT: denies: ear pain, throat pain Respiratory: denies: cough, shortness of breath, wheezing Cardiovascular: denies: chest pain, palpitations Endocrine: no symptoms reported Gastrointestinal: denies: abdominal pain, nausea, diarrhea Genitourinary: denies: urgency, dysuria Musculoskeletal: back pain, arthralgia, myalgia Skin: denies: rash, lesions Neurological: denies: headache, weakness, paresthesias Psychiatric: denies: anxiety, depression Hematological/Lymphatic: denies: easy bleeding, easy bruising ED Past Medical Hx - Past Medical History Hx Hypertension: Yes Additional medical history: back pain - Surgical History Past Surgical History?: No - Social History Smoking Status: Never Smoker Substance Use Type: None - Medications Home Medications: Home Medications Medication Instructions Recorded Confirmed Last Taken Type Ibuprofen [Motrin] 800 mg PO Q8HR PRN #20 tablet 01/31/18 Unknown Rx Promethazine [Phenergan TAB] 25 mg PO Q6HR PRN #20 tab 05/17/18 Unknown Rx levoFLOXacin [Levaquin TAB] 500 mg PO QDAY #7 tablet 05/17/18 Unknown Rx HYDROcodone/APAP 5-325 [[place] 1 - 2 each PO Q6HR PRN #14 tablet 06/16/18 Unknown Rx 5-325 mg TAB] Ibuprofen [Motrin 800 MG tab] 800 mg PO Q8HR PRN #20 tablet 06/16/18 Unknown Rx Ibuprofen [Motrin] 600 mg PO Q8H PRN #20 tablet 07/04/18 Unknown Rx Famotidine [Pepcid] 40 mg PO DAILY #14 tablet 07/13/18 Unknown Rx Hyoscyamine Subl [Levsin Sl 0.125 0.125 mg SL Q6HR PRN #20 tab 07/13/18 Unknown Rx TAB] Amoxicillin 500 mg PO TID #21 capsule 08/29/18 Unknown Rx Benzonatate [Tessalon Perles] 100 mg PO Q8HR #20 capsule 08/29/18 Unknown Rx Chlorhexidine Mouthwash [Peridex] 15 ml MM BID #473 bottle 08/29/18 Unknown Rx Lidocaine Viscous 2% 5 ml MM Q3H PRN #120 udc 08/29/18 Unknown Rx Cyclobenzaprine [Flexeril] 10 mg PO TID PRN #30 tablet 09/26/18 Unknown Rx Menthol/Camphor [[place] 1 applicatio TP QID PRN #1 tube 09/26/18 Unknown Rx Ointment] Naproxen 500 mg PO BID PRN #30 tablet 09/26/18 Unknown Rx ED Physical Exam - General Limitations: No Limitations General appearance: alert, in no apparent distress - Head Head exam: Present: atraumatic, normocephalic - Eye Eye exam: Present: normal appearance, PERRL, EOMI Pupils: Present: normal accommodation - ENT ENT exam: Present: normal orophraynx, mucous membranes moist - Neck Neck exam: Present: normal inspection, full ROM. Absent: tenderness, meningismus, lymphadenopathy, thyromegaly - Expanded Neck Exam Expanded Neck exam: Absent: midline deformity, anterior neck swelling, thyroid mass - Respiratory Respiratory exam: Present: normal lung sounds bilaterally. Absent: respiratory distress, wheezes, stridor, chest wall tenderness - Cardiovascular Cardiovascular Exam: Present: regular rate, normal rhythm, normal heart sounds. Absent: systolic murmur, diastolic murmur, rubs, gallop - GI/Abdominal GI/Abdominal exam: Present: soft, normal bowel sounds. Absent: tenderness, guarding, rebound, bruit, hernia - Rectal Rectal exam: Present: deferred - Extremities Exam Extremities exam: Present: normal inspection, full ROM, normal capillary refill. Absent: tenderness, joint swelling - Back Exam Back exam: Present: normal inspection, full ROM, tenderness (no posterior vertebral point tender mild left lateral paraspinus tenderness pos straight leg right , no weakness no nubmness distal pulses intact ), muscle spasm, paraspinal tenderness. Absent: CVA tenderness (R), CVA tenderness (L), vertebral tenderness, rash noted - Expanded Back Exam Expanded Back exam: Absent: saddle anesthesia Back exam: Positive Straight Leg Raise: Left, Negative Straight Leg Raising: Right - Neurological Exam Neurological exam: Present: alert, oriented X3, CN II-XII intact, normal gait, reflexes normal. Absent: motor sensory deficit - Psychiatric Psychiatric exam: Present: normal affect, normal mood - Skin Skin exam: Present: warm, dry, intact, normal color. Absent: rash ED Course Vital Signs 09/26/18 02:10 Temperature 98.9 F Pulse Rate 74 Respiratory 20 Rate Blood Pressure 120/77 O2 Sat by Pulse 100 Oximetry ED Medical Decision Making - Lab Data Labs 09/26/18 04:00 Urine Color Yellow Urine Turbidity Clear Urine pH 6.0 Ur Specific [place] 1.019 Urine Protein <15 mg/dl Urine Glucose (UA) Neg Urine Ketones Neg Urine Blood Neg Urine Nitrite Neg Urine Bilirubin Neg Urine Urobilinogen < 2.0 Ur Leukocyte Esterase Neg Urine WBC (Auto) 1.0 Urine RBC (Auto) < 1.0 Urine Mucus Few - Medical Decision Making this is a low back strain plain nsaids, muscle relaxants , analgesic balm, pt will follow up with ortho in 2-3 days, given referral to [facility] in 2-3 days pt verbalized agreement and understanding with discharge plan Critical care attestation.: If time is entered above; I have spent that time in minutes in the direct care of this critically ill patient, excluding procedure time. ED Disposition Clinical Impression: Low back strain Qualifiers: Encounter type: initial encounter Qualified Code(s): S39.012A - Strain of muscle, fascia and tendon of lower back, initial encounter Disposition: TO HOME OR SELFCARE Is pt being admited?: No Does the pt Need Aspirin: No Condition: Stable Instructions: Muscle Strain (ED), Low Back Strain (ED), Core Strengthening Exercises (GEN) Prescriptions: Cyclobenzaprine [Flexeril] 10 mg PO TID PRN #30 tablet PRN Reason: Muscle Spasm Menthol/Camphor [[place] Ointment] 1 applicatio TP QID PRN #1 tube PRN Reason: pain Naproxen 500 mg PO BID PRN #30 tablet PRN Reason: Pain , Severe (7-10) Referrals: BRANDON ORTIZ MD [Staff Physician] - 3-5 Days [facility] [Outside] - 3-5 Days Forms: Work/School Release Form(ED) Time of Disposition: 05:36
== END 2018-09-26 05:43 | disposition home or self-care (01) ==
LOC: ED 00:46
DX: S39.012A Strain of muscle, fascia and tendon of lower back, initial encounter (principal); X50.1XXA Overexertion from prolonged static or awkward postures, initial encounter; Y93.89 Activity, other specified; Y92.89 Other specified places as the place of occurrence of the external cause; Y99.8 Other external cause status
CPT/HCPCS: 81001; 96372; 99283; J1885

== ENCOUNTER 2018-10-06 23:38 | Emergency (ER) | payer MEDICARE ==
--- NOTE | 2018-10-07 00:21 | Emergency Department Report ---
HPI - General Chief Complaint: Seizure Time Seen by Provider: 10/07/18 00:17 - HPI HPI: 27-year-old -[place] male presents to ED with the chief complaint of passing out, possible seizure. Patient stated he was having an argument with his girlfriend when a black out completely, does not remember what happened for about a minute. He denies any loss of bowel or urine. Denies any fever, neck pain, chest pain, shortness of breath. Patient said he wants had a seizure about a few years ago but does not remember when. ED Past Medical Hx - Past Medical History Previous Medical History?: Yes Hx Hypertension: Yes Hx Seizures: Yes (epilepsy) Additional medical history: back pain - Surgical History Past Surgical History?: No - Social History Smoking Status: Never Smoker Substance Use Type: Prescribed - Medications Home Medications: Home Medications Medication Instructions Recorded Confirmed Last Taken Type Ibuprofen [Motrin] 800 mg PO Q8HR PRN #20 tablet 01/31/18 Unknown Rx Promethazine [Phenergan TAB] 25 mg PO Q6HR PRN #20 tab 05/17/18 Unknown Rx levoFLOXacin [Levaquin TAB] 500 mg PO QDAY #7 tablet 05/17/18 Unknown Rx HYDROcodone/APAP 5-325 [[place] 1 - 2 each PO Q6HR PRN #14 tablet 06/16/18 Unknown Rx 5-325 mg TAB] Ibuprofen [Motrin 800 MG tab] 800 mg PO Q8HR PRN #20 tablet 06/16/18 Unknown Rx Ibuprofen [Motrin] 600 mg PO Q8H PRN #20 tablet 07/04/18 Unknown Rx Famotidine [Pepcid] 40 mg PO DAILY #14 tablet 07/13/18 Unknown Rx Hyoscyamine Subl [Levsin Sl 0.125 0.125 mg SL Q6HR PRN #20 tab 07/13/18 Unknown Rx TAB] Amoxicillin 500 mg PO TID #21 capsule 08/29/18 Unknown Rx Benzonatate [Tessalon Perles] 100 mg PO Q8HR #20 capsule 08/29/18 Unknown Rx Chlorhexidine Mouthwash [Peridex] 15 ml MM BID #473 bottle 08/29/18 Unknown Rx Lidocaine Viscous 2% 5 ml MM Q3H PRN #120 udc 08/29/18 Unknown Rx Cyclobenzaprine [Flexeril] 10 mg PO TID PRN #30 tablet 09/26/18 Unknown Rx Menthol/Camphor [[place] 1 applicatio TP QID PRN #1 tube 09/26/18 Unknown Rx Ointment] Naproxen 500 mg PO BID PRN #30 tablet 09/26/18 Unknown Rx ED Review of Systems ROS: Stated complaint: POSS SYNCOPE/SEIZURE Other details as noted in HPI Physical Exam - Physical Exam Vital Signs: Vital Signs 10/07/18 00:07 Temperature 98.1 F Pulse Rate 109 H Respiratory 24 Rate Blood Pressure 131/84 O2 Sat by Pulse 98 Oximetry ED Course Vital Signs 10/07/18 00:07 Temperature 98.1 F Pulse Rate 109 H Respiratory 24 Rate Blood Pressure 131/84 O2 Sat by Pulse 98 Oximetry ED Medical Decision Making - Lab Data Result diagrams: 10/07/18 00:19 10/07/18 00:19 - Medical Decision Making 27-year-old male who blacked out after argument with his girlfriend, I suspect this will likely be anxiety, or stress related. But we will rule out other significant pathology by getting a CT head, CBC, chemistry, chest x-ray, UA, drug screen. Serial examinations throughout this ER visit. Were within normal limits, CT head, work were all negative, will DC patient home with follow-up with PCP. - Differential Diagnosis differential diagnoses include, seizures, anxiety stress reaction, syncope Critical care attestation.: If time is entered above; I have spent that time in minutes in the direct care of this critically ill patient, excluding procedure time. ED Disposition Clinical Impression: Anxiety in acute stress reaction Syncope Qualifiers: Syncope type: unspecified Qualified Code(s): R55 - Syncope and collapse Disposition: DC-01 TO HOME OR SELFCARE Is pt being admited?: No Does the pt Need Aspirin: No Condition: Stable Instructions: Syncope (ED) Referrals: PRIMARY CARE, [Primary Care Provider] - 3-5 Days
[2018-10-07 00:33] LABS: Basophils % (Auto) 0.2 % (0.0-1.8); Eosinophils # (Auto) 0.2 K/mm3 (0.0-0.4); Eosinophils % (Auto) 2.7 % (0.0-4.3); Lymphocytes # (Auto) 1.8 K/mm3 (1.2-5.4); Lymphocytes % (Auto) 24.2 % (13.4-35.0); Mean Corpuscular HGB Conc 33 % (32-34); Mean Corpuscular Volume 88 fl (84-94); Monocytes # (Auto) 0.5 K/mm3 (0.0-0.8); Monocytes % (Auto) 7.1 % (0.0-7.3); Platelet Count 165 K/mm3 (140-440)
[2018-10-07 00:57] LABS: Alanine Aminotransferase 36 units/L (7-56); Albumin 4.5 g/dL (3.9-5); BUN/Creatinine Ratio 14; Blood Urea Nitrogen 13 mg/dL (9-20); Calcium 9.5 mg/dL (8.4-10.2); Hemolysis Index 264
[2018-10-07 02:20] LABS: Bilirubin,Urine NEG (Negative); Blood,Urine NEG (Negative); Color,Urine Yellow (Yellow); Hyaline Casts,Urine 7 /LPF; Mucus,Urine FEW /HPF; Urobilinogen,Urine < 2.0 mg/dL (<2.0)
[2018-10-07 02:22] LABS: Amphetamine Screen,Urine PRESUMPTIVE NEGATIVE; Benzodiazepines Screen,Urine PRESUMPTIVE NEGATIVE; Cannabinoid Screen,Urine PRESUMPTIVE NEGATIVE; Cocaine Screen,Urine PRESUMPTIVE NEGATIVE; Methadone Screen,Urine PRESUMPTIVE NEGATIVE; Opiate Screen,Urine PRESUMPTIVE NEGATIVE
--- NOTE | 2018-10-07 02:29 | Cat Scan Report ---
PROCEDURE: CT HEAD/BRAIN WO CON TECHNIQUE: Computerized tomography of the head was performed without contrast material. CT DOSE LENGTH PRODUCT: mGycm HISTORY: Seizure vs syncope COMPARISONS: 05/28/2017 . FINDINGS: Skull and scalp: Normal . Paranasal sinuses: Normal . Ventricles and subarachnoid spaces: Normal . Cerebrum: No evidence of hemorrhage, acute infarction or mass . Cerebellum and brainstem: No evidence of hemorrhage, acute infarction or mass . Vasculature: Normal . IMPRESSION: Normal Examination . This document is electronically signed by Wisam Taylor MD., October 07 2018 02:26:57 AM ET
[2018-10-07 03:06] VITALS: BP 133/74
== END 2018-10-07 03:06 | disposition home or self-care (01) ==
LOC: ED 23:38
DX: F41.1 Generalized anxiety disorder (principal); F43.0 Acute stress reaction; I10 Essential (primary) hypertension; G40.909 Epilepsy, unspecified, not intractable, without status epilepticus
CPT/HCPCS: 36415; 70450; 80053; 80307; 81001; 82550; 82962; 83735; 85025; 93005; 93010; 99284; G0480; 80320

== ENCOUNTER 2020-02-11 08:19 | Emergency (ER) | payer MEDICARE ==
[2020-02-11 08:30] VITALS: BP 142/90
[2020-02-11] MEDS ORDERED: DIPHtheria,PERTUSSIS(ACELL),TETANUS VACCINE/PF 0.5 ML VIAL IM ONE (10:00)
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
== END 2020-02-11 11:20 | disposition home or self-care (01) ==
LOC: ED 08:19
DX: T20.00XA Burn of unspecified degree of head, face, and neck, unspecified site, initial encounter (principal); I10 Essential (primary) hypertension; Z86.69 Personal history of other diseases of the nervous system and sense organs; Z79.899 Other long term (current) drug therapy; Z79.1 Long term (current) use of non-steroidal anti-inflammatories (NSAID); X08.8XXA Exposure to other specified smoke, fire and flames, initial encounter; Y93.89 Activity, other specified; Y92.89 Other specified places as the place of occurrence of the external cause; Y99.8 Other external cause status
CPT/HCPCS: 90471; 90715; 99281